=== PATIENT | female | born 1975 | race Caucasian/White ===

== ENCOUNTER 2017-04-12 12:54 | Emergency (ER) | payer MEDICAID ==
[2017-04-12 13:24] VITALS: RESP 16
--- NOTE | 2017-04-12 13:37 | EDPHY ---
H & P Time Seen by Provider: 04/12/17 13:26 HPI/ROS: CHIEF COMPLAINT: right paraspinal discomfort from lifting accident 2 days ago HISTORY OF PRESENT ILLNESS: this is a 41-year-old female has never really had back problems in the past. They are attempting to lift a a love seat off of a backup truck. It turned out to be a lot heavier than she thought and thus gave way. As the left seat collapse to the ground she had it violent twisting mechanism as she was trying to catch it. She has sustained pain and discomfort ever since to the right paraspinal area in the vicinity of L4-L5. Of note is that she was not knocked over. She did not get any direct blow. She has never had problems like this before. She has tried 800 mg of ibuprofen four times daily. No benefit. She denies any substance abuse history or family history of same. No known bipolar disease. She states that she will not be in the [place] drug monitoring program when I queried her prior to my search. I did in fact validate that this was the case. The pain itself is strictly lumbar. Does not radiate around to the abdomen or down the leg. There has been no saddle anesthesia. She has had no numbness or tingling paresthesias. She is able to stand up. Prior instrumentation of the back: No IV drug abuse: No Bowel or bladder continence: No Fever: No Loss of sensation in the saddle distribution: No Pt queried and denies: prior hx of substance abuse family history of substance abuse or current or prior psychiatric history. Smoking Status: Never smoked Physical Exam: General: Well-developed well-nourished. Nontoxic. Afebrile. Vital signs are stable. Back: No spasm, those tender musculature at the right L5/sacroiliac area. No rashes. Range of motion [limited], reproduce the pain on the right SLR: Negative Great Toe Extension: Normal Patellar Reflex: 2+ Ankle Reflex: 1+ Sensation: Normal sensation including the proximal posterior thigh. Constitutional: Initial Vital Signs Temperature (C) 36.8 C 04/12/17 13:00 Heart Rate 86 04/12/17 13:00 Respiratory Rate 16 04/12/17 13:00 Blood Pressure 109/75 04/12/17 13:00 O2 Sat (%) 95 04/12/17 13:00 O2 Delivery Mode Room Air Allergies/Adverse Reactions: No Known Allergies Allergy (Verified 04/12/17 13:20) Home Medications: Medication Instructions Recorded Acetaminophen [Arthritis Pain 1,300 mg PO TID PRN #60 tablet.er 04/12/17 Relief] Albuterol Hfa Anes Only PRN 04/12/17 Cyclobenzaprine [Flexeril 10 MG 10 mg PO HS PRN #10 tab 04/12/17 (*)] Diclofenac Sodium [Voltaren 50 MG 50 mg PO BID #30 tab 04/12/17 (*)] Medical Decision Making ED Course/Re-evaluation: There are no clinical findings or risk factors to suggest this is a spinal cord abscess. There is some mild right paraspinal discomfort to direct palpation. No spasm. I do not think physical therapy would help her at this point in time although would refer her if she is not better in 5 days. She certainly given unusually high dose of ibuprofen time it has not helped thereby would switch over to diclofenac. Flexeril to help her sleep Tylenol as needed Differential Diagnosis: Differential diagnosis includes but not limited to: Fracture, Sprain, Strain, Acute Degenerative Disc, Disc Herniationa, Radiculopathy, Sacroiliac dysfunction, Epidural Abscess. Departure - Departure Disposition: Home, Routine, Self-Care Clinical Impression: Degenerative disc disease at L5-S1 level Lumbar spine strain Qualifiers: Encounter type: initial encounter Qualified Code(s): S39.012A - Strain of muscle, fascia and tendon of lower back, initial encounter Condition: Good Instructions: Low Back Strain (ED), Lower Back Exercises (ED), Core Strengthening Exercises (ED) Additional Instructions: For this week apply ice Next week when her better, start Radha exercises as found on You tube. At bedtime take the pain medicines as well as the Flexeril to help sleep. During the day you can use Tylenol extended-release 650 mg, 2 tablets twice daily Stop the ibuprofen and switch to diclofenac. PT referral if not better by end of the week. Referrals: GUILLERMO CHURCHILL [Primary Care Provider] - As per Instructions Prescriptions: Acetaminophen [Arthritis Pain Relief] 1,300 mg PO TID PRN #60 tablet.er PRN Reason: Pain, Moderate Cyclobenzaprine [Flexeril 10 MG (*)] 10 mg PO HS PRN #10 tab PRN Reason: Sleep/Insomnia Diclofenac Sodium [Voltaren 50 MG (*)] 50 mg PO BID #30 tab
[2017-04-12 14:33] VITALS: BP 112/72; PULSE 85; TEMP 98.4; O2SAT 96
== END 2017-04-12 14:32 | disposition home or self-care (01) ==
LOC: CED 12:54
DX: S39.012A Strain of muscle, fascia and tendon of lower back, initial encounter (principal); M51.37 Other intervertebral disc degeneration, lumbosacral region; X50.0XXA Overexertion from strenuous movement or load, initial encounter

== ENCOUNTER → 2018-08-11 | Outpatient (CLI) | payer MEDICAID | LOC: CIMAGING 07:21 | PROVIDERS: ATTEND Family Medicine | DX: K80.20 Calculus of gallbladder without cholecystitis without obstruction (principal) | CPT/HCPCS: 76705-PO ==